=== PATIENT | female | born 1970 | race Caucasian/White ===

== ENCOUNTER → 2017-08-16 | Day surgery (SDC) | payer OTHER ==
[~2017-08-16] VITALS: Ht 157.5 cm; Wt 67.1 kg
[~2017-08-16] MED LIST: AMLODIPINE BESYL5 M1 PO; FLONASE ALLERG9.9 ML NASB; GABAPENTIN300 M2 PO; LEXAPRO20 M1 PO; MULTIVITAMINS1 EAC9 PO; NAPROSYN500 M1 PO; VITAMIN B-1100 MG PO; VITAMIN D1000 UNIT PO
--- NOTE | 2017-08-16 08:55 | Operative Report ---
Operative/Inv Procedure Report Surgery Date: 08/16/17 Name of Procedure: Hysteroscopy D&C and endometrial ablation Pre-Operative Diagnosis: Menorrhagia fibroid uterus Post-Operative Diagnosis: Same Estimated Blood Loss: 50ml to 100ml Surgeon/Leaded Glass Installer: Sidney HAMPTON,Nathan Villalobos Anesthesia: tiva Specimens: Endometrial curette, Complications: None Condition: Good good Operative/Procedure Note Note: The patient was brought to the operating room placed in dorsal supine position a timeout was done with the patient awake. After the induction of anesthesia second timeout was done patient was placed in low stirrups examination under anesthesia was performed a speculum was placed in the vagina the anterior lip of the cervix was grasped with a single-tooth tenaculum. The endocervical canal was dilated and a hysteroscope was introduced noting a thickened endometrium photos were taken. This was followed by a sharp curettage OF the endometrial cavity which was sent to pathology for examination the uterus was sounded to 9 cm the cervix was measured to be 3.5 cm the NovaSure device was therefore set 5.5 cm length the NovaSure device was seated the width of the endometrial canal was noted to be 3.5 cm after testing for integrity A 60 second treatment cycle was undertaken at 108 hunt there were no complications single-tooth tenaculum was removed and the patient was moved to recovery in good condition sponge instrument and needle counts were correct 3
== END ==
LOC: STS 02:29
DX: N92.0 Excessive and frequent menstruation with regular cycle (principal); N85.9 Noninflammatory disorder of uterus, unspecified; I10 Essential (primary) hypertension; J45.909 Unspecified asthma, uncomplicated
CPT/HCPCS: 81025; 88305; J2250